=== PATIENT | female | born 1980 | race Caucasian/White ===

== ENCOUNTER 2018-04-02 05:55 | Observation (INO) ==
--- NOTE | 2018-04-02 06:26 | Emergency Department Note ---
Disposition Clinical Impression: Referred by physician Disposition: Admitted As Inpatient General Adult HPI - General Chief complaint: ED Abdominal Pain Stated complaint: appendicitis, staff rm visit Time Seen by Provider: 04/02/18 06:25 Source: patient, EMS Limitations: no limitations - History of Present Illness HPI Narrative: This patient was not seen by the emergency department. This was a staff room visit. Pain Scale: 5 - Related Data Home Medications Medication Instructions Recorded Confirmed Albuterol Sulfate [Albuterol 2 puff IH Q4HR 04/02/18 04/02/18 Inhaler] Amitriptyline [Elavil] 25 mg PO HS 04/02/18 04/02/18 Amlodipine Besylate 10 mg PO DAILY 04/02/18 04/02/18 Aspirin [Lo-Dose Aspirin EC] 81 mg PO DAILY 04/02/18 04/02/18 Cetirizine HCl [Zyrtec] 10 mg PO DAILY 04/02/18 04/02/18 Dicyclomine [Bentyl] 20 mg PO QID 04/02/18 04/02/18 FLUoxetine HCl [Prozac] 60 mg PO DAILY 04/02/18 04/02/18 Famotidine [Heartburn Prevention] 20 mg PO BID 04/02/18 04/02/18 Fenofibrate Nanocrystallized 200 mg PO DAILY 04/02/18 04/02/18 Fluticasone/Vilanterol [Breo 1 puff IH DAILY 04/02/18 04/02/18 Ellipta 100-25 Mcg INH] Gabapentin [Neurontin] 800 mg PO QID 04/02/18 04/02/18 Ibuprofen [Motrin] 600 mg PO TID 04/02/18 04/02/18 Insulin Regular U-500 [HumuLIN R 20 - 30 unit SQ TID 04/02/18 04/02/18 U-500] Losartan Potassium [Cozaar] 100 mg PO DAILY 04/02/18 04/02/18 Omeprazole [PriLOSEC] 40 mg PO DAILY 04/02/18 04/02/18 Oxygen 4 l .ROUTE HS 04/02/18 04/02/18 Potassium Chloride [Klor-Con 10] 10 meq PO BID 04/02/18 04/02/18 Quetiapine Fumarate [Seroquel] 200 mg PO HS 04/02/18 04/02/18 Sildenafil Citrate [Revatio] 30 mg PO DAILY 04/02/18 04/02/18 Simvastatin [Zocor] 40 mg PO HS 04/02/18 04/02/18 Tizanidine HCl 4 mg PO BID 04/02/18 04/02/18 Topiramate [Topamax] 100 mg PO BID 04/02/18 04/02/18 Torsemide [Demadex] 20 mg PO BID 04/02/18 04/02/18 hydroCHLOROthiazide 25 mg PO DAILY 04/02/18 04/02/18 [Hydrochlorothiazide] Previous Rx's Medication Instructions Recorded Acetaminophen [Tylenol] 650 mg PO Q6HR PRN tablet 04/03/18 Amoxicillin/Clavulanate [Augmentin] 1 mg PO TID #30 tablet 04/03/18 OxyCODONE/APAP 5/325 [Percocet 1 each PO Q6HR PRN 4 Days #16 04/03/18 5/325 MG] tablet Allergies Allergy/AdvReac Type Severity Reaction Status Date / Time Sulfa (Sulfonamide Allergy Mild Hives Unverified 07/17/15 09:44 Antibiotics) Erythromycin Base AdvReac Intermediate Vomiting Unverified 07/17/15 09:44 Past Medical History - Past Medical History Medical history: Reports: asthma, COPD, diabetes, GERD, hyperlipidemia, hypertension Surgical history: Reports: breast surgery, , other Psychiatric history: Reports: no psych history - Social History Smoking Status: Never smoker Smokeless Tobacco Status: No Alcohol use: Reports: none Drug use: Reports: none Physical Exam - General Limitations: no limitations General appearance: alert Course Vital Signs Temperature 98.1 F 04/02/18 05:59 Pulse Rate 80 04/02/18 05:59 Respiratory Rate 16 04/02/18 05:59 Blood Pressure 95/61 04/02/18 05:59 O2 Sat by Pulse Oximetry 92 04/02/18 05:59 Temperature 98.2 F 04/03/18 14:27 Pulse Rate 64 04/03/18 14:27 Respiratory Rate 16 04/03/18 14:27 Blood Pressure 110/65 04/03/18 14:27 O2 Sat by Pulse Oximetry 98 04/03/18 14:27 Oxygen Delivery Oxygen Delivery Nasal Cannula Medical Decision Making - Lab Data Result diagrams: 04/03/18 05:06 04/03/18 05:06 Lab Results 04/02/18 Range/Units 07:40 POC Glucose 193 H (70-99) mg/dL
[2018-04-02] MEDS ORDERED: Bupivacaine/EPI 1:200k 0.25%PF 30 ML VIAL ONE (07:17)
[2018-04-02] MEDS ORDERED: *HR* Midazolam HCl 2 MG/2 ML VIAL ONE (07:19)
[2018-04-02] MEDS ORDERED: *HR* Propofol 200 MG/20 ML VIAL IVP ONE (07:19)
[2018-04-02] MEDS ORDERED: *HR* FentaNYL (PF) 100 MCG/2 ML VIAL ONE (07:19)
[2018-04-02] MEDS ORDERED: *HR* Rocuronium Bromide 50 MG/5 ML VIAL ONE (07:23)
[2018-04-02] MEDS ORDERED: Lidocaine -MPF 2% 2 ML VIAL ONE (07:23)
[2018-04-02] MEDS ORDERED: Acetaminophen IV 1,000 MG/100 ML INFUS..BTL ONE (07:30)
--- NOTE | 2018-04-02 07:33 | General Surg History&Physical ---
Date of Encounter: 04/02/18 Time of Encounter: 07:50 History of Present Illness Chief complaint: lower abominal pain, acute appendicitis HPI: Ms. Pemberton is a 37 year old female transferred from [facility] after presenting there with approximately 24-hour history of progressive lower abdominal pain. The patient describes being seen by her PCP one day ago with a diagnosis of a urinary tract infection. The symptoms have progressed prompting the patient to present to [facility] for further evaluation and treatment. CT demonstrated an inflamed distended appendix measuring 1.1 cm with no periappendiceal evidence of abscess or free air. In addition a left adnexal 5 x 3.6 cm fat-containing mass was identified. White was 16,000. The findings were consistent with acute appendicitis. Due to a history of severe pulmonary disease the patient was transferred to [facility] for further care and management. It appears that the patient seated ertapenem prior to transfer. Past medical history: Obesity, diabetes, diabetic peripheral neuropathy hypertension, GERD, chronic obstructive disease, sarcoidosis, depression Surgical history: Tubal ligation, , endometrial ablation Allergies: Erythromycin, sulfa Medications: Albuterol aerosol 1 puff every 6 hours Bentyl 10 mg twice a day Cozaar 25 mg by mouth daily Dulera 100 g/5 g per actuation 2 inhalations twice a day Effexor XR 150 g by mouth daily Flonase 50 g per spray 1 spray nasally daily Humulin R per sliding scale 3 times a day Hydrochlorothiazide 25 mg by mouth daily Neurontin 300 mg by mouth 3 times a day Prilosec 20 mg by mouth daily Topamax 1 by mouth daily (dose not specified) Toujeo 300 units per mL - dose not specified administered subcutaneously daily Social history: Patient is G2, P2; she is a smoker admitting to 2 packs daily for 25 years; she quit smoking in 2014. No acknowledged alcohol or illicit drug use. Physical examination: Obese female who appears to be older than her stated age. Cutaneous tattoos are evident. Skin is otherwise warm without obvious jaundice Lungs: Clear to auscultation with no abdominal pain on deep inspiration Cardiac: Rate was rapid, approximately 100 bpm, but without appreciable murmurs Abdomen: Obese, diffusely tender bilateral lower quadrants no obvious rebound. No detected intra-abdominal masses but exam limited by body habitus. Hypoactive bowel sounds Extremities: Without obvious clubbing, cyanosis, edema. Laboratories: White count 16.6, hemoglobin 13.8, hematocrit 41.6. Neutrophils 12.4% Sodium 140, potassium 3.3, chloride 104, BUN 9, creatinine 0.81. Serum glucose 252. LFTs were within normal limits, lipase [address]: Not available for my review. CT findings were by report only. Impression: 37-year-old female transferred from [facility] for further evaluation and treatment of new onset lower abdominal pain with radiologic evidence of acute appendicitis. Patient has significant pulmonary disease. Her Pulmologist is Dr Reinoso [facility]. The patient was transferred to [facility] for surgical evaluation and, if necessary, and pulmonary evaluation/treatment. I have recommended surgery. The patient is a reasonable candidate for laparoscopic appendectomy but understands open appendectomy may become necessary. Risks of surgery include hemorrhage, infection, injury to adjacent structures, possible removal of a normal appendix. Additional risks include respiratory failure, chronic hypoxia, prolonged intubation/mechanical ventilation. Alternatives to surgery include continued expectant follow-up with IV antibiotics and IV pain control. The risks of such treatment include worsening of acute appendicitis with perforation and subsequent greater risks. The patient has decided to proceed with surgery. Operative consent has been obtained Past Med Surg [facility] HX - Past Medical History Medical history: asthma, COPD, diabetes, GERD, hyperlipidemia, hypertension Psychiatric history: no psych history - Past Surgical History Surgical History: breast surgery, , other - Social History Smoking Status: Never smoker Smokeless Tobacco Status: No Alcohol use: none Drug use: none Medications and Allergies Albuterol Sulfate [Albuterol Inhaler] 2 puff IH Q4HR #1 inhaler 07/17/15 [Rx] Amlodipine [Norvasc] 10 mg PO HS 07/17/15 [History] Aspirin 81 mg PO HS 07/17/15 [History] Budesonide/Formoterol 160/4.5 [Symbicort] 1 puff IH BID 07/17/15 [History] Cetirizine HCl [Zyrtec] 10 mg PO HS 07/17/15 [History] Gabapentin [Neurontin] 800 mg PO QID 07/17/15 [History] Hydrochlorothiazide 25 mg PO DAILY 07/17/15 [History] Insulin Glargine,Hum.rec.anlog [Lantus Solostar] 50 unit SQ HS 07/17/15 [History ] Losartan [Cozaar] 50 mg PO HS 07/17/15 [History] Metformin [Glucophage] 500 mg PO BID 07/17/15 [History] Omeprazole [PriLOSEC] 40 mg PO HS 07/17/15 [History] Oxygen 4 l NS AD 07/17/15 [History] Simvastatin [Zocor] 20 mg PO HS 07/17/15 [History] Venlafaxine XR (24 HR) [Effexor XR] 150 mg PO HS 07/17/15 [History] Amitriptyline [Elavil] 25 mg PO HS 10/24/15 [History] Dicyclomine [Bentyl] 20 mg PO QID 10/24/15 [History] Famotidine [Pepcid] 20 mg PO BID 10/24/15 [History] Insulin Regular U-500 [HumuLIN R U-500] 20 unit SQ QID 10/24/15 [History] Tizanidine [Zanaflex] 2 mg PO BID 10/24/15 [History] Triamcinolone Acetonide [Nasacort] 1 spr NS BID 10/24/15 [History] 3 Allergy/AdvReac Type Severity Reaction Status Date / Time Sulfa (Sulfonamide Allergy Mild Hives Unverified 07/17/15 09:44 Antibiotics) Erythromycin Base AdvReac Intermediate Vomiting Unverified 07/17/15 09:44 Review of Systems All systems PM: The remainder of the systems were reviewed and are negative General Surgery Exam Initial Vital Signs Temp Pulse Resp BP Pulse Ox 98.1 F 80 16 95/61 92 04/02/18 05:59 04/02/18 05:59 04/02/18 05:59 04/02/18 05:59 04/02/18 05:59 Results - Labs All other labs normal.
--- NOTE | 2018-04-02 07:39 | Anesthesia Evaluation PreOp ---
Date of Encounter: 04/02/18 Time of Encounter: 07:00 - Past History Planned Operation: Lap Appendectomy Cardiac History: HTN, Hyperlipidemia Pulmonary History: COPD (on oxygen), OMID Dx, Other (POVD) DIRECTOR OF CATEGORY MANAGEMENT History: Denies Any Significant HX Other Medical History: Diabetes Type II (Accu check 193), Other (MO) Anesthesia History: No Prior Anesthetic Complications Alcohol Use: none Drug use: none Medications and Allergies Albuterol Sulfate [Albuterol Inhaler] 2 puff IH Q4HR #1 inhaler 07/17/15 [Rx] Amlodipine [Norvasc] 10 mg PO HS 07/17/15 [History] Aspirin 81 mg PO HS 07/17/15 [History] Budesonide/Formoterol 160/4.5 [Symbicort] 1 puff IH BID 07/17/15 [History] Cetirizine HCl [Zyrtec] 10 mg PO HS 07/17/15 [History] Gabapentin [Neurontin] 800 mg PO QID 07/17/15 [History] Hydrochlorothiazide 25 mg PO DAILY 07/17/15 [History] Insulin Glargine,Hum.rec.anlog [Lantus Solostar] 50 unit SQ HS 07/17/15 [History ] Losartan [Cozaar] 50 mg PO HS 07/17/15 [History] Metformin [Glucophage] 500 mg PO BID 07/17/15 [History] Omeprazole [PriLOSEC] 40 mg PO HS 07/17/15 [History] Oxygen 4 l NS AD 07/17/15 [History] Simvastatin [Zocor] 20 mg PO HS 07/17/15 [History] Venlafaxine XR (24 HR) [Effexor XR] 150 mg PO HS 07/17/15 [History] Amitriptyline [Elavil] 25 mg PO HS 10/24/15 [History] Dicyclomine [Bentyl] 20 mg PO QID 10/24/15 [History] Famotidine [Pepcid] 20 mg PO BID 10/24/15 [History] Insulin Regular U-500 [HumuLIN R U-500] 20 unit SQ QID 10/24/15 [History] Tizanidine [Zanaflex] 2 mg PO BID 10/24/15 [History] Triamcinolone Acetonide [Nasacort] 1 spr NS BID 10/24/15 [History] 3 Allergy/AdvReac Type Severity Reaction Status Date / Time Sulfa (Sulfonamide Allergy Mild Hives Unverified 07/17/15 09:44 Antibiotics) Erythromycin Base AdvReac Intermediate Vomiting Unverified 07/17/15 09:44 - Meds/Allergy Pre-op Review Medications Reviewed: Yes Allergies Reviewed: Yes Beta Blockers on Current Med List: No Anesthesia Results - Labs Laboratory Tests 05/19/15 10/24/15 08/09/16 Unknown 06:44 11:29 Hgb POC Hgb 15.8 H Plt Count Sodium Potassium BUN 6 L POC Creatinine 0.50 L 08/09/16 02/10/18 11:29 11:43 Hgb 15.7 H POC Hgb Plt Count 339 Sodium 135 L Potassium 3.3 L BUN POC Creatinine - Imaging EKG: report reviewed (SR moderate intraventricular delay) Anesthesia Exam O2 Sat Height 1.6 m Weight 104.326 kg O2 Sat by Pulse Oximetry 94 O2 Sat by Pulse Oximetry 95 O2 Sat by Pulse Oximetry 92 Vital Signs Temp Pulse Resp BP Pulse Ox 98.1 F 80 16 95/61 92 04/02/18 05:59 04/02/18 05:59 04/02/18 05:59 04/02/18 05:59 04/02/18 05:59 Height: 5'3 Weight: 230 lbs NPO (# of Hours): MN Pain Scale: 2 - HEENT Pupil (Motor): Pupils equal, EOMI Mallampati: III Teeth: Normal Oral Opening: Less than or equal to 3 - DIRECTOR OF CATEGORY MANAGEMENT LOC: Oriented DIRECTOR OF CATEGORY MANAGEMENT Motor: Normal RUE, Normal LUE, Normal RLE, Normal LLE, Normal Face DIRECTOR OF CATEGORY MANAGEMENT Sensory: Normal: RUE, LUE, RLE, LLE, Face - Cardiac Rhythm: Regular Murmur: None JVD: No Carotid Bruit: No - Pulmonary Breath Sounds: bilateral Clear Respiratory Effort: Symmetrical Anesthesia Assess/Plan ASA Score: 3 Modified [place] Scale for Level of Consciousness: Cooperative, oriented, and tranquil Anesthetic Plan: General Monitoring Plan: Standard Monitors Recovery Plan: PACU (Discussed GA, risk of anesthesia, agrees to proceed)
[2018-04-02] MEDS ORDERED: Lidocaine -MPF 4% 5 ML AMPUL ONE (07:40)
[2018-04-02] MEDS ORDERED: CefOXitin 2,000 MG VIAL ONE (07:55)
[2018-04-02] MEDS ORDERED: *HR* Succinylcholine 200 MG/10 ML VIAL IVP ONE (07:59)
[2018-04-02] MEDS ORDERED: Ondansetron 4 MG/2 ML VIAL ONE (08:09)
[2018-04-02] MEDS ORDERED: Dexamethasone 4 MG/ML VIAL ONE (08:09)
[2018-04-02] MEDS ORDERED: *HR* PHENYLEPHRINE 1,000 MCG/10 ML SYRINGE IVP ONE (08:12)
[2018-04-02] MEDS ORDERED: Ketorolac 30 MG/ML VIAL ONE (08:14)
[2018-04-02] MEDS ORDERED: Neostigmine Methylsulfate 3 MG/3 ML SYRINGE ONE (08:14)
[2018-04-02] MEDS ORDERED: *HR* OxyCODONE Immed Rel 5 MG TABLET PO PRN ×2 (08:38→10:17)
[2018-04-02] MEDS ORDERED: *HR* HYDROmorphone (PF) 1 MG/ML SYRINGE IVP PRN (08:38)
[2018-04-02] MEDS ORDERED: Ondansetron 4 MG/2 ML VIAL IVP PRN (08:38)
[2018-04-02] MEDS ORDERED: Ringers Solution, Lactated 500 ML IVC ONE (09:15)
--- NOTE | 2018-04-02 09:33 | Operative Note ---
Date of procedure: 04/02/18 Pre-op diagnosis: acute appendicitis Post-op diagnosis: other (Acute perforated appendicitis with peritonitis) Procedure: Laparoscopic appendectomy Complications: None apparent; acute perforated appendicitis encountered at the time of surgery (pre-existing) Anesthesia: GETA Local Anesthetics: 0.25% Sensorcaine HCL with Epinephrine 1:200,000 SubQ (cc) ( 30 mL) Surgeon: Blake Rascon Was there an assistant site manager present: No Estimated blood loss (cc): 10 IV fluids (cc): 1,000 Specimen: appendix Condition: stable Disposition: PACU Procedure in Detail: Brief history 37-year-old female transferred from [facility] for further evaluation and treatment of acute onset lower abdominal pain with radiologic evidence of acute appendicitis. The patient has a significant history of chronic respiratory disease/hypoxia prompting the referral. On arrival at [facility] emergency room Department, the patient was evaluated. She was found to have bilateral lower abdominal pain without obvious peritoneal signs. Urgent surgery was arranged. Complete historical details and physical findings are available in the dictated H&P Technique: Patient was brought to the operating room where she was placed supine on the procedure table. The patient was appropriately identified as to person and procedure. The accuracy of this information was confirmed by the patient and procedure team. Patient had significant discomfort/abdominal pain when placed supine. The patient was intubated and anesthetized under the supervision of Dr. Sarthak Aquino. A Castanon catheter was inserted. The abdomen was prepped and draped in usual sterile fashion. Several milliliters of 0.25% bupivacaine with 1-200,000 units epinephrine was infiltrated into the infraumbilical skin and subcutaneous tissue. A small transverse incision was made. Dissection was carried to the fascia. The fascia was grasped, elevated, and infiltrated with additional bupivacaine with epinephrine. The fascia was then incised and an 11 mm XCel port established. The rigid laparoscope was placed within the obturator to visualize passage through the layers of the anterior abdominal wall. When the abdominal cavity was accessed, the obturator was replaced by the rigid laparoscope, the abdomen was insufflated with gaseous carbon dioxide. There was no obvious visible injury from establishing the port. There were adhesions in the low midline abdomen making it necessary to place the 5 mm suprapubic port to the right of midline. A 12 mm port was placed in the left lower quadrant midclavicular line. Each site was infiltrated with these bupivacaine with epinephrine solution. On examining the right lower quadrant, pus was evident in the right paracolic gutter. Approximately 80 mL was evacuated with the laparoscopic suction device. The cecum was elevated and an inflamed, acutely perforated appendicitis was encountered. The mesoappendix was divided with the [place] dissectors. The appendix was transected at its junction with the cecum using an Ethicon ATS 45 mm stapler and a blue cartridge. The acutely inflamed appendix was elevated, adherent loops of small bowel were bluntly mobilized and the mesoappendix isolated. The mesoappendix was transected with the aid of the Ethicon ATS 45 mm stapler, using a vascular cartridge. When the appendix was from the surrounding structures, it was placed in an endoscopic pouch and extracted through the infraumbilical opening. The appendix was retrieved and sent to pathology. The staple lines were inspected and found to be intact. The pericolic gutter was again aspirated for any accumulated fluid/pus/blood. Hemostasis was deemed adequate. The pneumoperitoneum was evacuated and the instrumentation removed. The fascia of the infraumbilical opening was closed with interrupted [id number] 2-0 Vicryl using S retractors. The skin edges of the port sites were approximated with subcuticular 4-0 Vicryl. The incisions were sealed with Dermabond dermal adhesive. The patient was taken to PACU in stable condition. Needle, sponge, and instrument counts were correct at the close of the case.
--- NOTE | 2018-04-02 09:45 | Anesthesia Evaluation Post Op ---
Date of Encounter: 04/02/18 Time of Encounter: 09:44 - Vital Signs Vital Signs: Vital Signs/O2 Sat, Most Current Temp Pulse Resp BP Pulse Ox 98.6 F 80 16 103/56 93 04/02/18 09:19 04/02/18 09:39 04/02/18 09:39 04/02/18 09:39 04/02/18 09:39 - Lungs Lungs: Clear Ascult./Percussion - Airway Airway: Non-obstructed - Cardiovascular Regular Rate - Mental Status Mental Status: Alert & Oriented, Answers Appropriately - Pain Pain Scale: 0 Pain Scale used: Numeric (1 - 10) - Nausea Vomiting Nausea Vomiting: Not Present - Hydration Hydration: NPO - Discharge PostOp Status: Transfer Patient to floor Attestation: I have assessed this patient and find they meet discharge criteria.
[2018-04-02] MEDS ORDERED: D5% in Water 1,000 ML IVC PRN (10:17)
[2018-04-02] MEDS ORDERED: *HR* Dextrose 50 % in Water (Syg) 50 ML SYRINGE IVP PRN (10:17)
[2018-04-02] MEDS ORDERED: Dextrose Gel 15 GM/37.5 ML TUBE PO PRN (10:17)
[2018-04-02] MEDS: Ringers Solution, Lactated 1,000 ML IVC SCH (11:19)
[2018-04-02] MEDS: Insulin LISPRO 300 UNITS/3 ML VIAL SQ SCH ×4 (11:50→23:32)
[2018-04-02] MEDS: Acetaminophen 325 MG TABLET PO PRN ×2 (13:34→23:32)
[2018-04-02] MEDS: *HR* OxyCODONE/APAP 5/325 TABLET PO PRN (16:27)
[2018-04-02] MEDS: Famotidine 20 MG TABLET PO SCH (16:27)
[2018-04-02] MEDS ORDERED: Piperacillin/Tazobactam 3.375 GM in 0.9 % Sodium Chloride Mini Bag 100 ML IVPB SCH (18:00)
[2018-04-02] MEDS ORDERED: Aspirin 81 MG TAB.CHEW PO SCH (21:00)
[2018-04-03] MEDS: Piperacillin/Tazobactam 3.375 GM in 0.9 % Sodium Chloride Mini Bag 100 ML IVPB SCH ×3 (01:01→17:30)
[2018-04-03] MEDS: Ringers Solution, Lactated 1,000 ML IVC SCH ×2 (01:15→18:40)
[2018-04-03] MEDS: Insulin LISPRO 300 UNITS/3 ML VIAL SQ SCH ×4 (02:00→15:22)
[2018-04-03 05:43] LABS: Basophils # 0.1 K/mcL (0.0-0.2); Basophils % 0.4 %; Eosinophils # 0.3 K/mcL (0.0-0.6); Hematocrit 33.3 % (35.3-44.9); Hemoglobin 11.4 g/dL (11.5-15.4); Immature Granulocytes % 0.4 % (0-4); Lymphocytes # 4.7 K/mcL (0.6-4.6); Lymphocytes % 36.3 %; Mean Corpuscular HGB Conc 34.2 g/dL (31.6-35.5); Mean Corpuscular Hemoglobin 31.3 pg (28.0-33.3); Mean Corpuscular Volume 91.5 fL (83.0-100.0); Monocytes # 0.6 K/mcL (0.0-1.3); Monocytes % 4.5 %; Neutrophils # 7.2 K/mcL (1.6-8.9); Platelet Count 324 K/mcL (140-400); Red Blood Count 3.64 M/mcL (3.82-4.97); Red Cell Distribution Width 13.5 % (11.5-14.5); Segmented Neutrophils % 56.4 %
[2018-04-03 05:55] LABS: BUN/Creatinine Ratio 13 (6-26); Blood Urea Nitrogen 7 mg/dL (6-20); Calcium 8.7 mg/dL (8.6-10.3); Carbon Dioxide 21 mEq/L (23-29); Chloride 112 mEq/L (98-107); Glucose 225 mg/dL (70-105); Osmolality,Calculated 297 (280-300); Potassium 3.6 mEq/L (3.5-5.1); Sodium 141 mEq/L (136-145); eGFR For African Americans > 60 (> 60); eGFR For Non-African Americans > 60 (> 60)
[2018-04-03] MEDS: Famotidine 20 MG TABLET PO SCH (08:50)
[2018-04-03] MEDS: *HR* OxyCODONE/APAP 5/325 TABLET PO PRN (10:33)
[2018-04-03 14:35] VITALS: BP 110/65
--- NOTE | 2018-04-03 16:27 | General Surgery Progress Note ---
Date of Encounter: 04/03/18 Time of Encounter: 15:55 Subjective Narrative: General Surgery - POD #1 Progress Note Discharge Summary Patient feeling much improved; lower abdominal pain with which the patient resented to [facility] is markedly diminished. The patient admits to "being sore". The patient has remained afebrile, most recently 98.2; pulse 64, respirations 16, blood pressure 94/61 to 110/65 SPO2 on 4 L/m nasal cannula 98% - the patient is routinely on 4 L/m nasal cannula at home Lungs are clear, no obvious abdominal pain on deep inspiration Cardiac: Regular rate Abdomen: Obese, with tenderness in the right lower quadrant but markedly diminished from admission. No detected left lower quadrant tenderness. Active bowel sounds. The patient is tolerating a regular diet. No nausea or vomiting. Postoperative CBC shows improvement. Leukocytosis is diminished to 12.8 (on presentation 16.6) H&H 11.4 and 33.3. Differential shows resolution of the neutrophilia lymphocytes are diminished at 4.7%. Electrolytes - hypokalemia corrected, 3.6. Sodium 141, chloride 112, BUN 7, creatinine 0.55. Accu-Cheks remain elevated ranging 193-279 Impression: Postoperative day 1 - status post laparoscopic appendectomy after transferring from [facility] to [facility] with approximately a 24-hour history of progressive lower abdominal pain nausea and vomiting. Examination and CT demonstrated findings consistent with acute appendicitis. Patient has significant pulmonary disease prompting her referral to [facility]. The patient arrived early yesterday morning, was evaluated, and was taken to surgery. Laparoscopic appendectomy was completed. At the time of surgery, an acutely perforated appendicitis with pus in the pericolic gutter was found. These findings were discussed with the patient along with the need for postoperative IV antibiotics. Today the patient is insistent on being discharged home. The risks of this discharge were discussed in detail. The patient did not want to remain in the hospital for IV antibiotic therapy as recommended. The patient expressed understanding as to the risks. Plan: Discharge home Continue antibiotic therapy with oral meds. Augmentin 500 mg by mouth 3 times a day will be prescribed The patient may consume a regular diet The patient is to resume her routine home meds, including home oxygen Activity as tolerated the lifting is limited to less than 20 pounds Tylenol, ibuprofen, Motrin, Advil, Aleve, is recommended for pain Prescription for Percocet 5/325, #16, one every 6 hours as needed for pain not relieved by [id number] medications Follow-up in my office, , 04/09/18. The patient will call my office on Friday morning to make this appointment The patient has been instructed to contact me for increasing abdominal pain, fever, chills, nausea or vomiting. Discharge diagnoses: Acute perforated appendicitis Chronic hypoxia / COPD / emphysema Poorly controlled diabetes with diabetic peripheral neuropathy Sarcoidosis Obesity Left adnexal 5 x 3.6 cm fat-containing mass - likely a dermoid Status at the time of discharge: Fair Objective Vital Signs - Last 8 Hours Temp Pulse Resp BP Pulse Ox 04/03/18 14:27 98.2 F 64 16 110/65 98 04/03/18 09:58 97.9 F 67 15 94/61 93 Intake and Output 04/03/18 04/03/18 04/03/18 07:59 15:59 23:59 Intake Total 1100 / 1100 1680 / 1680 Output Total 0 / 0 100 / 100 Balance 1100 / 1100 1580 / 1580 Intake: IV Fluids 1100 / 1100 Lactated Ringers 1,000 ML @ 75 1000 / 1000 mls/hr IVC .[id number] [facility]ZAD Rx#: [id number] Zosyn 3.375 GM In 0.9 % Sodium 100 / 100 Chloride (Mini-Bag +) 100 ML @ 25 mls/hr IVPB Q8H [facility] Rx#: [id number] Oral 0 / 0 1680 / 1680 Output: Urine 0 / 0 100 / 100 Other: Meal Lunch Percent of Meal Consumed 75% Blood Glucose* 177 237 - Labs 04/03/18 05:06 04/03/18 05:06 Diabetes panel 04/03/18 Range/Units 05:06 Sodium 141 (136-145) mEq/L Potassium 3.6 (3.5-5.1) mEq/L Chloride 112 H (98-107) mEq/L Carbon Dioxide 21 L (23-29) mEq/L BUN 7 (6-20) mg/dL Creatinine 0.55 L (0.60-1.20) mg/dL Glucose 225 H (70-105) mg/dL Calcium 8.7 (8.6-10.3) mg/dL Calcium panel 04/03/18 Range/Units 05:06 Calcium 8.7 (8.6-10.3) mg/dL Pituitary panel 04/03/18 Range/Units 05:06 Sodium 141 (136-145) mEq/L Potassium 3.6 (3.5-5.1) mEq/L Chloride 112 H (98-107) mEq/L Carbon Dioxide 21 L (23-29) mEq/L BUN 7 (6-20) mg/dL Creatinine 0.55 L (0.60-1.20) mg/dL Glucose 225 H (70-105) mg/dL Calcium 8.7 (8.6-10.3) mg/dL Adrenal panel 04/03/18 Range/Units 05:06 Sodium 141 (136-145) mEq/L Potassium 3.6 (3.5-5.1) mEq/L Chloride 112 H (98-107) mEq/L Carbon Dioxide 21 L (23-29) mEq/L BUN 7 (6-20) mg/dL Creatinine 0.55 L (0.60-1.20) mg/dL Glucose 225 H (70-105) mg/dL Calcium 8.7 (8.6-10.3) mg/dL - VTE Documentation of Mechanical Device: Graduated compression elastic hosiery Consult Discharge Plan - Plan Referrals: Blake Rascon MD [Non-Partnered Physician] -
--- NOTE | 2018-04-03 16:31 | Discharge Summary ---
Outpatient Proc Discharge Plan - Plan Additional Instructions: Diabetic diet Activity as tolerated; lifting limited to less than 20 pounds Patient may shower, wash incisions with soap and water Patient may resume home meds including home oxygen therapy Tylenol, ibuprofen, Motrin, Advil, etc. as needed for pain Prescription for Percocet 5/325, #16, one every 6 hours as needed for pain not relieved by [id number] medication Follow-up in the office, , 04/09/18. Patient to call office Friday to make this appointment. Contact me or return to the emergency department for increasing abdominal pain, fever, chills, nausea, or vomiting. Prescriptions: OxyCODONE/APAP 5/325 [Percocet 5/325 MG] 1 each PO Q6HR PRN 4 Days #16 tablet PRN Reason: pain not relieved by Tylenol Amoxicillin/Clavulanate [Augmentin] 1 mg PO TID #30 tablet Home Medications: Albuterol Sulfate [Albuterol Inhaler] 2 puff IH Q4HR 04/02/18 [History] Amitriptyline [Elavil] 25 mg PO HS 04/02/18 [History] Amlodipine Besylate 10 mg PO DAILY 04/02/18 [History] Aspirin [Lo-Dose Aspirin EC] 81 mg PO DAILY 04/02/18 [History] Cetirizine HCl [Zyrtec] 10 mg PO DAILY 04/02/18 [History] Dicyclomine [Bentyl] 20 mg PO QID 04/02/18 [History] FLUoxetine HCl [Prozac] 60 mg PO DAILY 04/02/18 [History] Famotidine [Heartburn Prevention] 20 mg PO BID 04/02/18 [History] Fenofibrate Nanocrystallized 200 mg PO DAILY 04/02/18 [History] Fluticasone/Vilanterol [Breo Ellipta 100-25 Mcg INH] 1 puff IH DAILY 04/02/18 [ History] Gabapentin [Neurontin] 800 mg PO QID 04/02/18 [History] Ibuprofen [Motrin] 600 mg PO TID 04/02/18 [History] Insulin Regular U-500 [HumuLIN R U-500] 20 - 30 unit SQ TID 04/02/18 [History] Losartan Potassium [Cozaar] 100 mg PO DAILY 04/02/18 [History] Omeprazole [PriLOSEC] 40 mg PO DAILY 04/02/18 [History] Oxygen 4 l .ROUTE HS 04/02/18 [History] Potassium Chloride [Klor-Con 10] 10 meq PO BID 04/02/18 [History] Quetiapine Fumarate [Seroquel] 200 mg PO HS 04/02/18 [History] Sildenafil Citrate [Revatio] 30 mg PO DAILY 04/02/18 [History] Simvastatin [Zocor] 40 mg PO HS 04/02/18 [History] Tizanidine HCl 4 mg PO BID 04/02/18 [History] Topiramate [Topamax] 100 mg PO BID 04/02/18 [History] Torsemide [Demadex] 20 mg PO BID 04/02/18 [History] hydroCHLOROthiazide [Hydrochlorothiazide] 25 mg PO DAILY 04/02/18 [History] Acetaminophen [Tylenol] 650 mg PO Q6HR PRN tablet 04/03/18 [Rx] Amoxicillin/Clavulanate [Augmentin] 1 mg PO TID #30 tablet 04/03/18 [Rx] OxyCODONE/APAP 5/325 [Percocet 5/325 MG] 1 each PO Q6HR PRN 4 Days #16 tablet [Rx]
== END 2018-04-03 18:41 | disposition home or self-care (01) ==
LOC: EMEROO 05:55 → 3ANU 07:49 → INTOOBSV 07:49 → 3ANU 07:57
PROVIDERS: ADMIT Surgery; ATTEND Surgery

== ENCOUNTER 2019-06-20 20:14 | Inpatient (IN) ==
[2019-06-20] MEDS ORDERED: Ondansetron 4 MG/2 ML VIAL IVP PRN (22:25)
[2019-06-20] MEDS ORDERED: Naloxone 0.4 MG/ML INJ IVP PRN (22:25)
[2019-06-20] MEDS ORDERED: 0.9 % Sodium Chloride 1,000 ML IVC SCH (22:30)
--- NOTE | 2019-06-20 23:00 | Internal Med History&Physical ---
Date of Encounter: 06/20/19 Time of Encounter: 22:27 Internal Medicine - H&P: HPI History of present illness: Ms. Pemberton is a 38 year old female with a past medical history of COPD, diabetes, peripheral neuropathy, pulmonary vascular occlusive disease, pulmonary hypertension and sarcoidosis on 4 L nasal cannula at home and currently on a transplant list up at [facility] who initially presented to [facility] with complaints of dysuria, nausea and vomiting. Patient also reporting low back pain. She was found to be septic with a fever of 104 and tachycardic suspicious for pyelonephritis with positive UA. Lactic acid of 3. Patient started on Zosyn and vancomycin. White count was normal otherwise. Patient was also found to be hyperglycemic with a blood glucose of 435 and anion gap 27. No evidence of acidosis on ABG. Patient was started on insulin drip. Initial blood pressure was 140/57 patient received an additional 500 mL bolus of fluid for a total of 2500 mL. On arrival patient was alert oriented 3, did not appear septic. Initial vitals concerning for blood pressure of 85/63. Repeat blood pressure now 100/65. Patient states her blood pressure normally ru ns in the 120s. Patient is otherwise not having other complaints at this time. We will admit for sepsis of urological origin. Past Med Surg Social Fam HX - Past Medical History Medical history: asthma, COPD, diabetes, GERD, hyperlipidemia, hypertension Additional medical history: PVOD, pulmonary HTN, SBO Psychiatric history: anxiety, depression - Past Surgical History Surgical History: appendectomy, breast surgery, , SOHAN/BSO, other Additional surgical history: Left ovary removal, uterine ablation, transvaginal sling - Social History Smoking Status: Former smoker Packs per day: 2 Smokeless Tobacco Status: No Alcohol use: none Drug use: none - Family History Mother Name: Diamond Family Member Ethnicity: Non- Living Status: Age at : 53 Cause of : lung cancer Hx Family Cardiac Disorders: Yes Hx Family Respiratory Disorders: Yes Hx Family Cancer: Yes Hx Family GI Disorders: No Hx Family Genitourinary Disorders: No Hx Family Endocrine Disorder: Yes Hx Family Musculoskeletal Disorders: No Hx Family Neuromuscular Disorders: No Hx Family Neurologic Disorders: No Hx Family HEENT Disorders: No Hx Family Autoimmune Disorders: No Hx Family Reproductive Disorders: No Hx Family Psychosocial Disorders: No Hx Family Medical Disorders: No Internal Medicine - H&P: Meds Albuterol Sulfate [Proventil Inhaler] 2 puff IH Q4HR PRN 04/02/18 [History] Aspirin [Lo-Dose Aspirin EC] 81 mg PO DAILY 04/02/18 [History] Cetirizine HCl [Zyrtec] 10 mg PO DAILY 04/02/18 [History] Dicyclomine [Bentyl] 20 mg PO BID 04/02/18 [History] FLUoxetine HCl [Prozac] 60 mg PO DAILY 04/02/18 [History] Famotidine [Heartburn Prevention] 20 mg PO HS PRN 04/02/18 [History] Fenofibrate,Micronized [Fenofibrate] 200 mg PO DAILY #0 04/02/18 [History] Gabapentin [Neurontin] 800 mg PO QID 04/02/18 [History] Insulin Regular U-500 [HumuLIN R U-500] 32 unit SQ TID 04/02/18 [History] Sildenafil Citrate [Revatio] 10 mg PO TID 04/02/18 [History] Simvastatin [Zocor] 40 mg PO HS 04/02/18 [History] Tizanidine HCl 4 mg PO BID PRN 04/02/18 [History] Topiramate [Topamax] 150 mg PO BID 04/02/18 [History] Omeprazole [PriLOSEC] 20 mg PO DAILY 10/27/18 [History] hydrOXYzine HCl [Hydroxyzine HCl] 50 mg PO QPM 10/27/18 [History] Acetaminophen [Tylenol] 650 mg PO Q6H PRN tablet 10/30/18 [Rx] Buspirone HCl [Buspar] 15 mg PO BID 06/21/19 [History] Fluticasone/Salmeterol [Airduo Respiclick 113-14 Mcg] 1 puff IH BID 06/21/19 [History] Losartan Potassium [Cozaar] 50 mg PO DAILY 06/21/19 [History] Potassium Chloride [Klor-Con 10] 20 meq PO DAILY 06/21/19 [History] Quetiapine Fumarate [Seroquel] 300 mg PO HS 06/21/19 [History] lamoTRIgine [Lamictal] 100 mg PO DAILY 06/21/19 [History] Allergy/AdvReac Type Severity Reaction Status Date / Time Erythromycin Base Allergy Intermediate HIVES,VOMIT Verified 06/21/19 11:04 ING Sulfa (Sulfonamide Allergy Mild HIVES,VOMIT Verified 06/21/19 11:04 Antibiotics) ING All Systems PM: A 10-system review of systems was performed and is negative for pertinent findings except as documented above in the HPI. - Constitutional Constitutional: no chills, no fever(s), no night sweats - EENT Eyes: no change in vision, no discharge, no pain, no photophobia Ears: no ear discharge, no ear pain, no tinnitus Nose, mouth and throat: no dysphagia, no nasal discharge, no neck pain, no sore throat - Cardiovascular Cardiovascular ROS IM: no chest pain, no diaphoresis, no dyspnea, no lightheadedness, no palpitations, no syncope - Respiratory Respiratory: no cough, no dyspnea, no wheezing, no excessive phlegm production - Gastrointestinal Gastrointestinal: no abdominal pain, no diarrhea, no hematemesis, no hematochezia, no melena, no nausea, no vomiting - Genitourinary Genitourinary: no change in urinary stream, no dysuria, no flank pain, no hematuria - Musculoskeletal Musculoskeletal ROS IM: no numbness, no tingling - Integumentary Integumentary IM: no rash, no unusual bruising - Neurological Neurological ROS: no confusion, no convulsions, no focal weakness, no numbness, no tingling, no tremor(s) - Hematologic/Lymphatic Hematologic/Lymphatic: no easy bruising - Constitutional Vitals: Temp Pulse Resp BP Pulse Ox 99.1 F 95 20 91/55 99 06/20/19 22:01 06/20/19 22:01 06/20/19 22:01 06/20/19 22:01 06/20/19 22:01 Exam: General: Alert and oriented 3 Skin:Normal color, no rash, no lesions. HEENT:EOM, pupils equal, round and reactive. Cardiovascular:Normal S1 & S2, no rubs, murmurs or gallops. No JVD. Pulse regular. Lungs:Normal breath sounds, no wheezes or crackles. Abdomen:Soft, non-tender, no rigidity. Mild right-sided CVA tenderness noted Extremities:No deformity, no edema or tenderness, no joint swelling or clubbing. Neurological:Normal cognition and motor skills. Pulses:Carotid and radial pulses normal +2. Rest of the physical exam is non contributory Internal Med - H&P Results - Labs CBC & Chem 7: 06/21/19 06:17 06/21/19 06:17 - Assessment and Plan (1) Pyelonephritis Current Visit: Yes Status: Acute Assessment and plan: Patient presenting with right-sided flank pain radiating to who her right growing with several day history of dysuria. UA showing positive nitrites and leukocyte esterase concerning for possible pyelonephritis. Patient denies any previous history of nephrolithiasis. Patient received vancomycin and Zosyn prior to transfer. -Continue patient on maintenance fluids -Pain control as needed -We will continue patient on Zosyn -We will send for a CT scan of the abdomen and pelvis for further assessment of flank pain. (2) Sepsis Current Visit: Yes Status: Acute Assessment and plan: Patient presenting with fever 104 and tachycardia secondary to urinary tract infection. Found to have a lactic acid of 3. Blood pressure initially stable on arrival however began to drop into the low 90s. Patient received a total of 2500 mL of fluid bolus. Blood pressure currently stable; no further evidence of tachycardia. -Continue maintenance fluids -We will repeat lactic acid -Continue antibiotics -Follow-up blood and urine cultures Qualifiers: Sepsis type: sepsis due to unspecified organism Sepsis acute organ dysf unction status: without acute organ dysfunction Qualified Code(s): A41.9 - Sepsis, unspecified organism (3) PVOD (pulmonary veno-occlusive disease) Current Visit: No Status: Acute (4) COPD (chronic obstructive pulmonary disease) Current Visit: No Status: Chronic Assessment and plan: History of COPD currently on 4 L of oxygen at home. No evidence of any acute exacerbation at this time. -Continue O2 support -Resume any home inhalers. Qualifiers: COPD type: unspecified COPD Qualified Code(s): J44.9 - Chronic obstructive pulmonary disease, unspecified (5) Diabetes Current Visit: No Status: Chronic Assessment and plan: Resume diabetic diet, sliding scale insulin plus basal dose once blood glucose stable.. Qualifiers: Diabetes mellitus type: type 2 Diabetes mellitus terminal supervisor insulin use: with mcc use Diabetes mellitus complication status: with hyperglycemia Qualified Code(s): E11.65 - Type 2 diabetes mellitus with hyperglycemia; Z79.4 - care home (current) use of insulin (6) Hyperglycemia Current Visit: Yes Status: Acute Assessment and plan: Patient found to have a blood glucose of over 400 prior to transfer. Repeat blood glucose here 209. -We will start patient on blood glucose checks every hour with sliding scale coverage. (7) Hypokalemia Current Visit: Yes Status: Acute Assessment and plan: Hypokalemia of 2.8. -Replete as needed. (8) DVT prophylaxis Current Visit: Yes Status: Acute - Time Spent With Patient Total time spent is greater than 50% in coordination of care (as documented) at patient's floor/unit and/or counseling patient:
[2019-06-20] MEDS ORDERED: Dextrose Gel 15 GM/37.5 ML TUBE PO PRN ×2 (23:05)
[2019-06-20] MEDS ORDERED: D5% in Water 1,000 ML IVC PRN (23:05)
[2019-06-20] MEDS ORDERED: *HR* Dextrose 50 % in Water (Syg) 50 ML SYRINGE IVP PRN (23:05)
[2019-06-21] MEDS: Insulin DETEMIR 100 UNIT/ML X5UNITS SQ SCH ×2 (01:27→21:35)
[2019-06-21 01:41] LABS: Basophils # 0.1 K/mcL (0.0-0.2); Basophils % 0.3 %; Hematocrit 34.2 % (35.3-44.9); Hemoglobin 11.4 g/dL (11.5-15.4); Immature Granulocytes % 0.9 % (0-4); Lymphocytes # 2.2 K/mcL (0.6-4.6); Lymphocytes % 11.2 %; Mean Corpuscular HGB Conc 33.3 g/dL (31.6-35.5); Mean Corpuscular Hemoglobin 29.7 pg (28.0-33.3); Mean Corpuscular Volume 89.1 fL (83.0-100.0); Mean Platelet Volume 12.2 fL (9.4-12.4); Monocytes % 5.2 %; Platelet Count 211 K/mcL (140-400); Red Blood Count 3.84 M/mcL (3.82-4.97); Red Cell Distribution Width 13.2 % (11.5-14.5); Segmented Neutrophils % 82.4 %; White Blood Count 19.5 K/mcL (4.3-11.1)
[2019-06-21 01:49] LABS: INR 1.3; Prothrombin Time 14.8 Seconds (9.4-12.1)
[2019-06-21 02:02] LABS: Alanine Aminotransferase 10 Units/L (7-52); Albumin 3.3 g/dL (3.5-5.7); Albumin/Globulin Ratio 1.5 (1.1-2.2); Alkaline Phosphatase 62 Units/L (34-104); Aspartate Amino Transferase 12 Units/L (13-39); BUN/Creatinine Ratio 13 (6-26); Bilirubin,Total 0.3 mg/dL (0.3-1.0); Blood Urea Nitrogen 10 mg/dL (6-20); Calcium 8.1 mg/dL (8.6-10.3); Carbon Dioxide 19 mEq/L (23-29); Chloride 104 mEq/L (98-107); Globulin 2.2 g/dL (2.4-3.5); Glucose 338 mg/dL (70-105); Magnesium 1.2 mg/dL (1.6-2.6); Osmolality,Calculated 290 (280-300); Potassium 2.8 mEq/L (3.5-5.1); Sodium 134 mEq/L (136-145); Total Protein 5.5 g/dL (6.4-8.9); eGFR For African Americans > 60 (> 60); eGFR For Non-African Americans > 60 (> 60)
[2019-06-21 02:03] LABS: Troponin I < 0.03 ng/mL (< 0.04)
[2019-06-21] MEDS: Acetaminophen 325 MG TABLET PO PRN (03:23)
[2019-06-21] MEDS: Insulin LISPRO 300 UNITS/3 ML VIAL SQ SCH ×11 (03:24→23:05)
[2019-06-21] MEDS: Piperacillin/Tazobactam 3.375 GM in 0.9 % Sodium Chloride Mini Bag 100 ML IVPB SCH ×3 (03:25→20:00)
[2019-06-21] MEDS ORDERED: Acetaminophen IV 500 MG/50 ML INFUS..BTL IVPB ONE (03:48)
[2019-06-21] MEDS ORDERED: Potassium Chloride 40 MEQ, Lidocaine 1% 2 ML in D5% in Water 500 ML IVPB ONE ×2 (03:49→15:06)
[2019-06-21] MEDS: Ketorolac 30 MG/ML VIAL IVP PRN ×2 (06:04→19:15)
[2019-06-21 07:10] LABS: Hematocrit 36.4 % (35.3-44.9); Hemoglobin 12.2 g/dL (11.5-15.4); Mean Corpuscular HGB Conc 33.5 g/dL (31.6-35.5); Mean Corpuscular Hemoglobin 29.6 pg (28.0-33.3); Mean Corpuscular Volume 88.3 fL (83.0-100.0); Mean Platelet Volume 11.4 fL (9.4-12.4); Monocytes # 0.2 K/mcL (0.0-1.3); Platelet Count 150 K/mcL (140-400); Red Blood Count 4.12 M/mcL (3.82-4.97); Red Cell Distribution Width 13.2 % (11.5-14.5); White Blood Count 8.9 K/mcL (4.3-11.1)
[2019-06-21 07:28] LABS: Alanine Aminotransferase 14 Units/L (7-52); Albumin 3.5 g/dL (3.5-5.7); Albumin/Globulin Ratio 1.6 (1.1-2.2); Alkaline Phosphatase 120 Units/L (34-104); Aspartate Amino Transferase 20 Units/L (13-39); BUN/Creatinine Ratio 14 (6-26); Bilirubin,Total 0.4 mg/dL (0.3-1.0); Blood Urea Nitrogen 14 mg/dL (6-20); Calcium 8.3 mg/dL (8.6-10.3); Carbon Dioxide 19 mEq/L (23-29); Chloride 104 mEq/L (98-107); Globulin 2.2 g/dL (2.4-3.5); Glucose 251 mg/dL (70-105); Osmolality,Calculated 293 (280-300); Potassium 2.6 mEq/L (3.5-5.1); Sodium 137 mEq/L (136-145); Total Protein 5.7 g/dL (6.4-8.9); eGFR For African Americans > 60 (> 60); eGFR For Non-African Americans > 60 (> 60)
[2019-06-21] MEDS ORDERED: Insulin LISPRO 300 UNITS/3 ML VIAL SQ SCH ×2 (07:30)
[2019-06-21 07:32] LABS: Lymphocytes # 1.4 K/mcL (0.6-4.6); Neutrophils # 7.3 K/mcL (1.6-8.9); Platelet Estimate Normal (Normal)
[2019-06-21] MEDS: Gabapentin 400 MG CAPSULE PO SCH ×4 (07:40→21:36)
[2019-06-21] MEDS: Sildenafil Citrate 20 MG TABLET PO SCH ×3 (07:40→21:37)
[2019-06-21] MEDS: Topiramate 100 MG TABLET PO SCH ×2 (07:40→21:36)
[2019-06-21] MEDS: FLUoxetine 20 MG CAPSULE PO SCH (07:40)
[2019-06-21] MEDS: Vancomycin Oral Soln 125 MG/2.5 ML UDC PO SCH ×2 (07:41→12:25)
[2019-06-21] MEDS: Aspirin Enteric Coated 81 MG Tablet PO SCH (07:41)
[2019-06-21] MEDS ORDERED: (Breo Ellipta 100-25 Mcg Inh) IH SCH (09:00)
[2019-06-21 13:52] LABS: Acinetobacter baumannii by PCR Not Detected (Not Detect); Candida albicans by PCR Not Detected (Not Detect); Candida glabrata by PCR Not Detected (Not Detect); Candida krusei by PCR Not Detected (Not Detect); Candida parapsilosis by PCR Not Detected (Not Detect); Candida tropicalis by PCR Not Detected (Not Detect); Enterobacter cloacae Cmplx PCR Not Detected (Not Detect); Enterococcus by PCR Not Detected (Not Detect); Escherichia coli by PCR DETECTED (Not Detect); Klebsiella oxytoca by PCR Not Detected (Not Detect); Klebsiella pneumoniae by PCR Not Detected (Not Detect); Proteus by PCR Not Detected (Not Detect); Pseudomonas aeruginosa by PCR Not Detected (Not Detect); Serratia marcescens by PCR Not Detected (Not Detect); Staphylococcus aureus by PCR Not Detected (Not Detect); Staphylococcus by PCR Not Detected (Not Detect); Streptococcus agalactiae(B)PCR Not Detected (Not Detect); Streptococcus by PCR Not Detected (Not Detect); Streptococcus pneumoniae PCR Not Detected (Not Detect); Streptococcus pyogenes (A) PCR Not Detected (Not Detect); blaKPC Carbapenem-Resist Gene Not Detected (Not Detect)
--- NOTE | 2019-06-21 14:57 | Internal Med Progress Note ---
Hospitalist Progress Note - Encounter Date of Encounter: 06/21/19 Time of Encounter: 14:54 - Subjective Interval History: Pt seen and examined at bedside. Patient reports right flank and right groin pain. She also reports back pain. Patient denies any fever and chills. Patient also reports dysuria and urinary frequency - Exam Vitals: Temp Pulse Resp BP Pulse Ox 98.6 F 91 18 98/58 94 06/21/19 12:25 06/21/19 12:25 06/21/19 12:25 06/21/19 12:25 06/21/19 12:25 Exam: General: Alert and oriented 3 Skin:Normal color, no rash, no lesions. HEENT:EOM, pupils equal, round and reactive. Cardiovascular:Normal S1 & S2, no rubs, murmurs or gallops. No JVD. Pulse reg ular. Lungs:Normal breath sounds, no wheezes or crackles. Abdomen:Soft, non-tender, no rigidity. Mild-moderate right-sided CVA tenderness noted Extremities:No deformity, no edema or tenderness, no joint swelling or clubbing. Neurological:Normal cognition and motor skills. Pulses:Carotid and radial pulses normal +2. - Assessment and Plan (1) Sepsis Current Visit: Yes Status: Acute Assessment and Plan: Patient presented to the emergency room with fever and tachycardia secondary to pyelonephritis and UTI. Frontal lactic acid of 3. Which trended down. Lactic acid this morning was 1.1. Continue aggressive IV hydration and Zosyn. Patient had mild CVA tenderness on exam we will continue to monitor. (2) Pyelonephritis Current Visit: Yes Status: Acute Assessment and Plan: Continue pain control, IV hydration, and Zosyn. Await culture results. (3) Diabetes Current Visit: No Status: Chronic Assessment and Plan: Basal and bolus insulin. (4) PVOD (pulmonary veno-occlusive disease) Current Visit: No Status: Acute Assessment and Plan: She is currently on transplant list at [facility]. (5) COPD (chronic obstructive pulmonary disease) Current Visit: No Status: Chronic Assessment and Plan: We will continue O2 support. Patient is currently not on any exacerbation.. (6) Hypokalemia Current Visit: Yes Status: Acute Assessment and Plan: Impression potassium was low at 2.6. Patient received replacement of 40mEQ X 1. Will give another 40mEQ in the evening. Will monitor (7) Hypomagnesemia Current Visit: Yes Status: Acute Assessment and Plan: Replace wth 4 gm og Mg X 1. Will monitor (8) DVT prophylaxis Current Visit: Yes Status: Acute Assessment and Plan: EPCD - Time Spent with Patient Total time spent is greater than 50% in coordination of care (as documented) at patient's floor/unit and/or counseling patient: Internal Medicine: Result - Labs CBC & Chem 7: 06/21/19 06:17 06/21/19 06:17 Labs: Short CBC 06/20/19 06/21/19 Range/Units 23:55 06:17 WBC 19.5 H 8.9 D (4.3-11.1) K/mcL Hgb 11.4 L 12.2 (11.5-15.4) g/dL Hct 34.2 L 36.4 (35.3-44.9) % Plt Count 211 150 (140-400) K/mcL Neutrophils # 16.0 H 7.3 (1.6-8.9) K/mcL BMP 06/20/19 06/21/19 23:55 06:17 Sodium 134 L 137 Potassium 2.8 L 2.6 L Chloride 104 104 Carbon Dioxide 19 L 19 L BUN 10 14 Creatinine 0.78 0.98 Glucose 338 H 251 H Calcium 8.1 L 8.3 L Cardiac Enzymes 06/20/19 Range/Units 23:55 Troponin I < 0.03 (< 0.04) ng/mL Liver Function 06/20/19 06/21/19 Range/Units 23:55 06:17 Total Bilirubin 0.3 0.4 (0.3-1.0) mg/dL AST 12 L 20 (13-39) Units/L ALT 10 14 (7-52) Units/L Alkaline Phosphatase 62 120 H (34-104) Units/L Albumin 3.3 L 3.5 (3.5-5.7) g/dL - ABG Interpretation ABG results: PT/INR, D-dimer PT 14.8 Seconds (9.4-12.1) H 06/20/19 23:55 - Impressions Impressions Abdomen/Pelvis CT 06/21/19 00:05 IMPRESSION: Mild dilatation of the bilateral urinary tracts without obstructing stone. Right greater than left perinephric and periureteral stranding. Urinary bladder wall thickening. Findings are suspicious for ascending urinary tract infection. Suboptimal evaluation for pyelonephritis on this study given lack of intravenous contrast. If clinically appropriate and if patient's renal function allows, follow-up CT of the abdomen and pelvis with intravenous contrast may be helpful for further evaluation. Hepatomegaly and hepatic steatosis. Trace pericardial and bilateral pleural fluid. The findings were sent to the Radiology Results Communication [facility] at 1:13 am on 06/21/2019to be communicated to a licensed caregiver. D/ / Puneet Slaughter / Puneet Slaughter Interpreting Provider: Puneet Slaughter Consult Discharge Plan - Plan Referrals: Rand Rodgers [Primary Care Provider] - (1) Sepsis Qualifiers: Sepsis type: sepsis due to unspecified organism Sepsis acute organ dysfunction status: without acute organ dysfunction Qualified Code(s): A41.9 - Sepsis, unspecified organism (3) Diabetes Qualifiers: Diabetes mellitus type: type 2 Diabetes mellitus marine oil terminal superintendent insulin use: with marine oil terminal superintendent use Diabetes mellitus complication status: with unspecified complications (5) COPD (chronic obstructive pulmonary disease) Qualifiers: COPD type: unspecified COPD Qualified Code(s): J44.9 - Chronic obstructive pulmonary disease, unspecified
[2019-06-21] MEDS: 0.9 % Sodium Chloride 1,000 ML IVC SCH (16:09)
[2019-06-21] MEDS: Budesonide/Formoterol 80/4.5 1 PUFF INH IH SCH (20:15)
[2019-06-22] MEDS: Acetaminophen 325 MG TABLET PO PRN ×2 (00:20→17:28)
[2019-06-22] MEDS: Insulin LISPRO 300 UNITS/3 ML VIAL SQ SCH ×11 (00:23→22:38)
[2019-06-22 01:49] LABS: Basophils % 0.3 %; Eosinophils # 0.1 K/mcL (0.0-0.6); Hematocrit 28.6 % (35.3-44.9); Immature Granulocytes % 1.8 % (0-4); Lymphocytes # 1.3 K/mcL (0.6-4.6); Lymphocytes % 11.3 %; Mean Corpuscular HGB Conc 33.6 g/dL (31.6-35.5); Mean Corpuscular Hemoglobin 29.4 pg (28.0-33.3); Mean Corpuscular Volume 87.7 fL (83.0-100.0); Mean Platelet Volume 11.6 fL (9.4-12.4); Monocytes # 0.4 K/mcL (0.0-1.3); Monocytes % 3.1 %; Neutrophils # 9.7 K/mcL (1.6-8.9); Platelet Count 138 K/mcL (140-400); Red Blood Count 3.26 M/mcL (3.82-4.97); Red Cell Distribution Width 13.3 % (11.5-14.5); Segmented Neutrophils % 82.5 %; White Blood Count 11.8 K/mcL (4.3-11.1)
[2019-06-22 01:57] LABS: Hemoglobin 9.6 g/dL (11.5-15.4)
[2019-06-22 02:05] LABS: Calcium 7.4 mg/dL (8.6-10.3); Magnesium 1.7 mg/dL (1.6-2.6); Potassium 3.2 mEq/L (3.5-5.1)
[2019-06-22] MEDS: 0.9 % Sodium Chloride 1,000 ML IVC SCH ×4 (02:12→22:42)
[2019-06-22] MEDS ORDERED: D5% in Water 250 ML ONE (05:08)
--- NOTE | 2019-06-22 07:15 | Event Note ---
Date of Encounter: 06/22/19 Time of Encounter: 05:55 I was informed by patients nurse that patients blood pressure was in the 70s, down from the low 100s earlier in the day. One bolus of NS was ordered; subsequent blood pressure was still in the 70s. Unable to transfer to ICU, as no bed is available. Stat CXR ordered due to increased respiratory rate. She was started on dopamine drip. Blood pressure subsequently improved to 102/57. Patient remains febrile at 101.6 in the setting of sepsis. Currently on Zosyn. Satting in the 90s on 4L via [place].
[2019-06-22] MEDS: Piperacillin/Tazobactam 3.375 GM in 0.9 % Sodium Chloride Mini Bag 100 ML IVPB SCH ×3 (08:25→20:26)
[2019-06-22] MEDS: Sildenafil Citrate 20 MG TABLET PO SCH ×3 (09:13→20:31)
[2019-06-22] MEDS: Aspirin Enteric Coated 81 MG Tablet PO SCH (09:13)
[2019-06-22] MEDS: Gabapentin 400 MG CAPSULE PO SCH ×4 (09:13→20:30)
[2019-06-22] MEDS: Topiramate 100 MG TABLET PO SCH ×2 (09:13→20:31)
[2019-06-22] MEDS: FLUoxetine 20 MG CAPSULE PO SCH (09:13)
[2019-06-22] MEDS: Budesonide/Formoterol 80/4.5 1 PUFF INH IH SCH ×2 (10:42→21:40)
[2019-06-22] MEDS ORDERED: 0.9 % Sodium Chloride 1,000 ML IV ONE (14:19)
--- NOTE | 2019-06-22 14:26 | Internal Med Progress Note ---
Hospitalist Progress Note - Encounter Date of Encounter: 06/22/19 Time of Encounter: 14:32 - Subjective Interval History: Patient was seen and examined at bedside today. Patient denies any acute issues and concerns at this time. Patient reports her right lower quadrant right flank and lower back pain has improved significantly since yesterday. Apart from this, she reports that overnight she developed difficulty in breathing. So patient got chest accident. Which was negative for any pneumonia. Patient reports that she would like to go home today. However, I explained to patient that she has a kidney infection and she needs antibiotic and aggressive fluid management in the hospital and advised to stay in the hospital for management. - Exam Vitals: Temp Pulse Resp BP Pulse Ox 98.8 F 77 18 82/58 93 06/22/19 12:10 06/22/19 12:10 06/22/19 12:10 06/22/19 12:10 06/22/19 12:10 Exam: General: A & O 3, In no acute distress HENNT: PERRLA. Head atraumatic and makes supple CVS S1 and S2 regular, no murmur RS: Clear to air entry bilaterally, no wheeze, no crackles Abdomen: Soft and nontender. Bowel sounds normal 4 Extremities: No cyanosis, clubbing, and edema Neurology: Cranial II-XII normal. Motor strength 5/5 bilaterally. Sensation intact - Assessment and Plan (1) Sepsis Current Visit: Yes Status: Acute Assessment and Plan: She was admitted night before yesterday due to sepsis likely due to pyelonephritis. Patient's initial lactic it was high which was trended down. Patient is currently on Zosyn. Patient's blood pressure is around 80s over 60s. We will continue to do aggressively fluid management. Continue to monitor. Overnight patient developed difficulty in breathing. Chest x-ray was done which was negative. Patient is currently on O2 support which is due to pulmonary venoocclusive disease. Patient is at home on 4 L oxygen. Patient here in the hospital requiring the same amount of oxygen. We will continue to monitor. (2) Pyelonephritis Current Visit: Yes Status: Acute Assessment and Plan: Management visible. (3) Diabetes Current Visit: No Status: Chronic Assessment and Plan: Resume diabetic diet, sliding scale insulin plus basal dose once blood glucose stable.. (4) PVOD (pulmonary veno-occlusive disease) Current Visit: No Status: Acute Assessment and Plan: She is currently on transplant list at [facility] for PVOD. (5) COPD (chronic obstructive pulmonary disease) Current Visit: No Status: Chronic Assessment and Plan: History of COPD currently on 4 L of oxygen at home. No evidence of any acute exacerbation at this time. Continue O2 support .Resume any home inhalers.Currently on transplant list due to PVOD. (6) Hypokalemia Current Visit: Yes Status: Acute Assessment and Plan: Hypokalemia of 2.8. K Dur 80 given yeater. K dur 40 today. Replete as needed.Will monitor. (7) Morbid obesity Current Visit: Yes Status: Acute Assessment and Plan: In as a BMI of 40. Advised on diet modification and exercise. (8) DVT prophylaxis Current Visit: Yes Status: Resolved Assessment and Plan: EPCD - Time Spent with Patient Total time spent is greater than 50% in coordination of care (as documented) at patient's floor/unit and/or counseling patient: 25 - 35 minutes Plan of Care Discussed with: patient Internal Medicine: Result - Labs CBC & Chem 7: 06/22/19 01:16 06/22/19 01:16 Labs: Short CBC 06/22/19 Range/Units 01:16 WBC 11.8 H (4.3-11.1) K/mcL Hgb 9.6 L D (11.5-15.4) g/dL Hct 28.6 L (35.3-44.9) % Plt Count 138 L (140-400) K/mcL Neutrophils # 9.7 H (1.6-8.9) K/mcL BMP 06/22/19 01:16 Sodium 130 L Potassium 3.2 L Chloride 105 Carbon Dioxide 17 L BUN 22 H Creatinine 1.26 H Glucose 225 H Calcium 7.4 L - ABG Interpretation ABG results: PT/INR, D-dimer PT 14.8 Seconds (9.4-12.1) H 06/20/19 23:55 - Impressions Impressions Chest X-Ray 06/22/19 05:02 IMPRESSION: Borderline cardiomegaly with minor airspace disease at the lung bases. Clinical correlation and follow-up chest radiographs recommended. D/ / Luís Brock MD / Luís Brock MD Interpreting Provider: Luís Brock MD Consult Discharge Plan - Plan Referrals: Rand Rodgers [Primary Care Provider] - (1) Sepsis Qualifiers: Sepsis type: sepsis due to unspecified organism Sepsis acute organ dysfunction status: without acute organ dysfunction Qualified Code(s): A41.9 - Sepsis, unspecified organism (3) Diabetes Qualifiers: Diabetes mellitus type: type 2 Diabetes mellitus termite control representative insulin use: with chcf use Diabetes mellitus complication status: with hyperglycemia Qualified Code(s): E11.65 - Type 2 diabetes mellitus with hyperglycemia; Z79.4 - termite treater (current) use of insulin (5) COPD (chronic obstructive pulmonary disease) Qualifiers: COPD type: unspecified COPD Qualified Code(s): J44.9 - Chronic obstructive pulmonary disease, unspecified
[2019-06-22] MEDS: Insulin DETEMIR 100 UNIT/ML X5UNITS SQ SCH (20:36)
[2019-06-23] MEDS: Insulin LISPRO 300 UNITS/3 ML VIAL SQ SCH ×5 (00:21→07:42)
[2019-06-23] MEDS: Piperacillin/Tazobactam 3.375 GM in 0.9 % Sodium Chloride Mini Bag 100 ML IVPB SCH (04:06)
[2019-06-23] MEDS: Acetaminophen 325 MG TABLET PO PRN (04:06)
[2019-06-23 05:15] LABS: Hematocrit 27.5 % (35.3-44.9); Hemoglobin 9.2 g/dL (11.5-15.4); Mean Corpuscular HGB Conc 33.5 g/dL (31.6-35.5); Mean Corpuscular Hemoglobin 28.9 pg (28.0-33.3); Mean Corpuscular Volume 86.5 fL (83.0-100.0); Mean Platelet Volume 11.5 fL (9.4-12.4); Platelet Count 155 K/mcL (140-400); Red Blood Count 3.18 M/mcL (3.82-4.97); Red Cell Distribution Width 13.8 % (11.5-14.5)
[2019-06-23 05:34] LABS: Alanine Aminotransferase 24 Units/L (7-52); Albumin/Globulin Ratio 1.2 (1.1-2.2); Alkaline Phosphatase 107 Units/L (34-104); Aspartate Amino Transferase 21 Units/L (13-39); BUN/Creatinine Ratio 15 (6-26); Bilirubin,Total 0.5 mg/dL (0.3-1.0); Blood Urea Nitrogen 13 mg/dL (6-20); Calcium 7.9 mg/dL (8.6-10.3); Carbon Dioxide 18 mEq/L (23-29); Chloride 109 mEq/L (98-107); Globulin 2.6 g/dL (2.4-3.5); Glucose 193 mg/dL (70-105); Osmolality,Calculated 287 (280-300); Potassium 3.4 mEq/L (3.5-5.1); Sodium 136 mEq/L (136-145); Total Protein 5.6 g/dL (6.4-8.9); eGFR For African Americans > 60 (> 60); eGFR For Non-African Americans > 60 (> 60)
[2019-06-23 05:41] LABS: Lymphocytes # 2.2 K/mcL (0.6-4.6); Monocytes # 0.2 K/mcL (0.0-1.3); Neutrophils # 9.6 K/mcL (1.6-8.9)
[2019-06-23 05:42] LABS: Platelet Estimate Normal (Normal)
[2019-06-23] MEDS: 0.9 % Sodium Chloride 1,000 ML IVC SCH (06:12)
[2019-06-23] MEDS: FLUoxetine 20 MG CAPSULE PO SCH (07:41)
[2019-06-23] MEDS: Aspirin Enteric Coated 81 MG Tablet PO SCH (07:41)
[2019-06-23] MEDS: Topiramate 100 MG TABLET PO SCH (07:42)
[2019-06-23] MEDS: Gabapentin 400 MG CAPSULE PO SCH (07:42)
[2019-06-23] MEDS: Sildenafil Citrate 20 MG TABLET PO SCH (07:42)
[2019-06-23] MEDS: Budesonide/Formoterol 80/4.5 1 PUFF INH IH SCH (10:21)
[2019-06-23 11:30] VITALS: BP 97/50
[2019-06-23] MEDS ORDERED: Insulin LISPRO 300 UNITS/3 ML VIAL SQ SCH ×2 (11:30→21:00)
--- NOTE | 2019-06-23 12:36 | Discharge Summary ---
Date of Encounter: 06/23/19 Time of Encounter: 12:33 - Discharge Diagnosis (1) Pyelonephritis Priority: Primary Status: Acute Assessment and Plan: Patient currently states that her flank pain has resolved. Denies chills, nausea an vomiting. E. coli grown on blood culture and sensitive to levaquin Wll dc on PO Levaquin (2) Diabetes Priority: Secondary Status: Chronic Assessment and Plan: Resume diabetic diet, sliding scale insulin plus basal dose once blood glucose stable.. Qualifiers: Diabetes mellitus type: type 2 Diabetes mellitus usp insulin use: with usp use Diabetes mellitus complication status: with hyperglycemia Qualified Code(s): E11.65 - Type 2 diabetes mellitus with hyperglycemia; Z79.4 - snf (current) use of insulin (3) PVOD (pulmonary veno-occlusive disease) Priority: Secondary Status: Acute Assessment and Plan: She is currently on transplant list at [facility] for PVOD. (4) COPD (chronic obstructive pulmonary disease) Priority: Secondary Status: Chronic Assessment and Plan: History of COPD currently on 4 L of oxygen at home. No evidence of any acute exacerbation at this time. Continue O2 support .Resume any home inhalers.Currently on transplant list due to PVOD. Qualifiers: COPD type: unspecified COPD Qualified Code(s): J44.9 - Chronic obstructive pulmonary disease, unspecified (5) DVT prophylaxis Priority: Secondary Status: Resolved Assessment and Plan: EPCD (6) Sepsis Priority: Secondary Status: Acute Assessment and Plan: Resolved. WBC 12.0. Normal vitals Continue antibiotics Qualifiers: Sepsis type: sepsis due to unspecified organism Sepsis acute organ dysfunction status: without acute organ dysfunction Qualified Code(s): A41.9 - Sepsis, unspecified organism (7) Hypokalemia Priority: Secondary Status: Acute Assessment and Plan: Resolved. (8) Morbid obesity Priority: Secondary Status: Acute Hospital course: Ms. Pemberton is a 38 year old female with a PMHx of Type 2 Dm, COPD and ulmonary Veno occlusive disease who presented with sepsis 2/2 pyelonephritis. She has improved on IV antibiotics and will be dischaged on oral antibiotics to follow up as outpatient. Discharge discussed with: patient - Time Spent with Patient Total time spent providing and/or coordinating discharge services: Time spent: Greater than 30 minutes (40) - Discharge Medications Prescriptions: New levoFLOXacin [Levaquin] 750 mg PO DAILY 10 Days #10 tablet Continued Albuterol Sulfate [Proventil Inhaler] 2 puff IH Q4HR PRN PRN Reason: Shortness Of Breath Aspirin [Lo-Dose Aspirin EC] 81 mg PO DAILY Cetirizine HCl [Zyrtec] 10 mg PO DAILY Dicyclomine [Bentyl] 20 mg PO BID Famotidine [Heartburn Prevention] 20 mg PO HS PRN PRN Reason: Heartburn Fenofibrate,Micronized [Fenofibrate] 200 mg PO DAILY #0 FLUoxetine HCl [Prozac] 60 mg PO DAILY Gabapentin [Neurontin] 800 mg PO QID Insulin Regular U-500 [HumuLIN R U-500] 32 unit SQ TID Sildenafil Citrate [Revatio] 10 mg PO TID Simvastatin [Zocor] 40 mg PO HS Tizanidine HCl 4 mg PO BID PRN PRN Reason: Muscle Spasm Topiramate [Topamax] 150 mg PO BID Omeprazole [PriLOSEC] 20 mg PO DAILY hydrOXYzine HCl [Hydroxyzine HCl] 50 mg PO QPM Buspirone HCl [Buspar] 15 mg PO BID Fluticasone/Salmeterol [Airduo Respiclick 113-14 Mcg] 1 puff IH BID lamoTRIgine [Lamictal] 100 mg PO DAILY Losartan Potassium [Cozaar] 50 mg PO DAILY Potassium Chloride [Klor-Con 10] 20 meq PO DAILY Quetiapine Fumarate [Seroquel] 300 mg PO HS No Action Acetaminophen [Tylenol] 650 mg PO Q6H PRN tablet PRN Reason: Pain Home Medications: Albuterol Sulfate [Proventil Inhaler] 2 puff IH Q4HR PRN 04/02/18 [History] Aspirin [Lo-Dose Aspirin EC] 81 mg PO DAILY 04/02/18 [History] Cetirizine HCl [Zyrtec] 10 mg PO DAILY 04/02/18 [History] Dicyclomine [Bentyl] 20 mg PO BID 04/02/18 [History] FLUoxetine HCl [Prozac] 60 mg PO DAILY 04/02/18 [History] Famotidine [Heartburn Prevention] 20 mg PO HS PRN 04/02/18 [History] Fenofibrate,Micronized [Fenofibrate] 200 mg PO DAILY #0 04/02/18 [History] Gabapentin [Neurontin] 800 mg PO QID 04/02/18 [History] Insulin Regular U-500 [HumuLIN R U-500] 32 unit SQ TID 04/02/18 [History] Sildenafil Citrate [Revatio] 10 mg PO TID 04/02/18 [History] Simvastatin [Zocor] 40 mg PO HS 04/02/18 [History] Tizanidine HCl 4 mg PO BID PRN 04/02/18 [History] Topiramate [Topamax] 150 mg PO BID 04/02/18 [History] Omeprazole [PriLOSEC] 20 mg PO DAILY 10/27/18 [History] hydrOXYzine HCl [Hydroxyzine HCl] 50 mg PO QPM 10/27/18 [History] Acetaminophen [Tylenol] 650 mg PO Q6H PRN tablet 10/30/18 [Rx] Buspirone HCl [Buspar] 15 mg PO BID 06/21/19 [History] Fluticasone/Salmeterol [Airduo Respiclick 113-14 Mcg] 1 puff IH BID 06/21/19 [History] Losartan Potassium [Cozaar] 50 mg PO DAILY 06/21/19 [History] Potassium Chloride [Klor-Con 10] 20 meq PO DAILY 06/21/19 [History] Quetiapine Fumarate [Seroquel] 300 mg PO HS 06/21/19 [History] lamoTRIgine [Lamictal] 100 mg PO DAILY 06/21/19 [History] levoFLOXacin [Levaquin] 750 mg PO DAILY 10 Days #10 tablet 06/23/19 [Rx] Allergies/Adverse Reactions: Allergy/AdvReac Type Severity Reaction Status Date / Time Erythromycin Base Allergy Intermediate HIVES,VOMIT Verified 06/21/19 11:04 ING Sulfa (Sulfonamide Allergy Mild HIVES,VOMIT Verified 06/21/19 11:04 Antibiotics) ING Date of admission: 06/21/19 09:36 Primary care physician: Rand Rodgers Consults: 06/22/19 06:28 Consult to Cardiac Rehabilitation-Phase1 [CONS] Routine Comment: Reason for Consult: heart failure Call Completed: Yes Consult to Nurse Navigator [CONS] Routine Comment: - Constitutional Vitals: Temp Pulse Resp BP Pulse Ox 36.8 C 89 18 97/50 92 06/23/19 11:25 06/23/19 11:25 06/23/19 11:25 06/23/19 11:25 06/23/19 11:25 General appearance: Present: A&O X 3 Exam: General: A & O 3, In no acute distress HENNT: PERRLA. Head atraumatic and makes supple CVS S1 and S2 regular, no murmur RS: Clear to air entry bilaterally, no wheeze, no crackles Abdomen: Soft and nontender. Bowel sounds normal Extremities: No cyanosis, clubbing, and edema Neurology: Cranial II-XII normal. Motor strength 5/5 bilaterally. Sensation intact - Patient Status Disposition: Home, Self-Care Condition: Fair Functional capacity at discharge: uses cane/walker Overall status at discharge: patient is progressing back to baseline - Discharge Instructions Follow Up With: Rand Rodgers [Primary Care Provider] - - Diet and Activity Activity: increase activity as tolerated Diet: advance to your usual diet, diabetic diet
[2019-06-24] MEDS ORDERED: levoFLOXacin 750 MG TABLET PO SCH (09:00)
== END 2019-06-23 14:30 | disposition home or self-care (01) | DRG 720 ==
LOC: 2NNU → SUATTDRO 21:38
PROVIDERS: ADMIT Internal Medicine; ATTEND Internal Medicine

== ENCOUNTER 2019-06-29 18:03 | Observation (INO) ==
[2019-06-29 19:37] LABS: Bilirubin,Urine Negative (Negative); Blood,Urine Moderate (Negative); Clarity,Urine Turbid (Clear); Color,Urine Yellow (Yellow); Glucose,Urine (UA) 250 mg/dL (Normal); Ketones,Urine Negative (Negative); Leukocyte Esterase,Urine Large (Negative); Nitrite,Urine Negative (Negative); PH,Urine 7.5 pH Units (5.0-8.0); Protein,Urine 30 mg/dL (Neg-Trace); Specific Gravity,Urine 1.015 (1.010-1.025); Urobilinogen,Urine Normal (Normal)
[2019-06-29 19:38] LABS: Bacteria,Urine Few per hpf (None-Few); Hyaline Casts,Urine None Seen per lpf (None-Few); Squamous Epithelial Cell,Urine Many per lpf (None-Few); WBC,Urine TNTC per hpf (0-3)
[2019-06-29] MEDS ORDERED: Ondansetron 4 MG/2 ML VIAL IVP ONE (20:25)
[2019-06-29] MEDS ORDERED: Morphine Sulfate 2 MG/ML SYRINGE IVP ONE (20:25)
[2019-06-29 20:28] LABS: Basophils # 0.1 K/mcL (0.0-0.2); Basophils % 0.3 %; Eosinophils # 0.2 K/mcL (0.0-0.6); Eosinophils % 1.1 %; Hematocrit 31.2 % (35.3-44.9); Hemoglobin 10.4 g/dL (11.5-15.4); Immature Granulocytes % 2.3 % (0-4); Lymphocytes # 3.8 K/mcL (0.6-4.6); Mean Corpuscular HGB Conc 33.3 g/dL (31.6-35.5); Mean Corpuscular Hemoglobin 28.7 pg (28.0-33.3); Mean Platelet Volume 10.1 fL (9.4-12.4); Monocytes # 0.7 K/mcL (0.0-1.3); Monocytes % 4.3 %; Neutrophils # 10.3 K/mcL (1.6-8.9); Platelet Count 660 K/mcL (140-400); Red Blood Count 3.63 M/mcL (3.82-4.97); Red Cell Distribution Width 14.3 % (11.5-14.5); White Blood Count 15.3 K/mcL (4.3-11.1)
[2019-06-29 20:48] LABS: Alanine Aminotransferase 14 Units/L (7-52); Albumin 3.3 g/dL (3.5-5.7); Albumin/Globulin Ratio 0.9 (1.1-2.2); Alkaline Phosphatase 97 Units/L (34-104); Aspartate Amino Transferase 10 Units/L (13-39); BUN/Creatinine Ratio 13 (6-26); Bilirubin,Direct 0.1 mg/dL (0.0-0.2); Bilirubin,Indirect 0.2 mg/dL (0.0-1.2); Bilirubin,Total 0.3 mg/dL (0.3-1.0); Blood Urea Nitrogen 8 mg/dL (6-20); Calcium 9.5 mg/dL (8.6-10.3); Carbon Dioxide 23 mEq/L (23-29); Chloride 101 mEq/L (98-107); Globulin 3.7 g/dL (2.4-3.5); Glucose 307 mg/dL (70-105); Lipase 19 Units/L (11-82); Osmolality,Calculated 286 (280-300); Potassium 3.7 mEq/L (3.5-5.1); Sodium 133 mEq/L (136-145); eGFR For African Americans > 60 (> 60); eGFR For Non-African Americans > 60 (> 60)
[2019-06-29 20:52] LABS: Platelet Estimate Increased (Normal)
[2019-06-29] MEDS ORDERED: cefTRIAXone 1,000 MG in Water for inj. (sterile) 10 ML IVP ONE (20:55)
[2019-06-29] MEDS ORDERED: Ondansetron 4 MG/2 ML VIAL IVP PRN (22:14)
[2019-06-29] MEDS ORDERED: Naloxone 0.4 MG/ML INJ IVP PRN ×2 (22:14→23:45)
[2019-06-29] MEDS ORDERED: tiZANidine 4 MG TABLET PO PRN (22:16)
[2019-06-29] MEDS ORDERED: D5% in Water 1,000 ML IVC PRN (22:20)
[2019-06-29] MEDS ORDERED: Dextrose Gel 15 GM/37.5 ML TUBE PO PRN ×2 (22:20)
[2019-06-29] MEDS ORDERED: *HR* Dextrose 50 % in Water (Syg) 50 ML SYRINGE IVP PRN (22:20)
[2019-06-29 23:13] LABS: Hematocrit 32.9 % (35.3-44.9); Hemoglobin 10.7 g/dL (11.5-15.4)
[2019-06-29] MEDS: 0.9 % Sodium Chloride 1,000 ML IVC SCH (23:34)
[2019-06-30 05:10] LABS: Basophils # 0.1 K/mcL (0.0-0.2); Basophils % 0.4 %; Eosinophils # 0.2 K/mcL (0.0-0.6); Eosinophils % 1.5 %; Hematocrit 27.9 % (35.3-44.9); Hemoglobin 8.9 g/dL (11.5-15.4); Lymphocytes # 3.5 K/mcL (0.6-4.6); Lymphocytes % 29.5 %; Mean Corpuscular HGB Conc 31.9 g/dL (31.6-35.5); Mean Corpuscular Volume 90.9 fL (83.0-100.0); Monocytes # 0.6 K/mcL (0.0-1.3); Monocytes % 4.7 %; Neutrophils # 7.3 K/mcL (1.6-8.9); Platelet Count 547 K/mcL (140-400); Red Blood Count 3.07 M/mcL (3.82-4.97); Red Cell Distribution Width 14.4 % (11.5-14.5); Segmented Neutrophils % 61.9 %; White Blood Count 11.7 K/mcL (4.3-11.1)
[2019-06-30 05:29] LABS: BUN/Creatinine Ratio 15 (6-26); Blood Urea Nitrogen 7 mg/dL (6-20); Calcium 7.1 mg/dL (8.6-10.3); Carbon Dioxide 18 mEq/L (23-29); Chloride 111 mEq/L (98-107); Glucose 271 mg/dL (70-105); Osmolality,Calculated 290 (280-300); Potassium 3.2 mEq/L (3.5-5.1); Sodium 136 mEq/L (136-145); eGFR For African Americans > 60 (> 60); eGFR For Non-African Americans > 60 (> 60)
[2019-06-30] MEDS ORDERED: Insulin LISPRO 300 UNITS/3 ML VIAL SQ SCH ×3 (06:00→21:00)
[2019-06-30] MEDS: 0.9 % Sodium Chloride 1,000 ML IVC SCH (06:10)
[2019-06-30] MEDS: Sildenafil Citrate 20 MG TABLET PO SCH ×3 (08:00→22:27)
[2019-06-30] MEDS: Topiramate 100 MG TABLET PO SCH ×2 (08:28→22:28)
[2019-06-30] MEDS: Gabapentin 400 MG CAPSULE PO SCH ×4 (08:29→22:27)
[2019-06-30] MEDS: lamoTRIgine 100 MG TABLET PO SCH (08:29)
[2019-06-30] MEDS: Fenofibrate 54 MG TABLET PO SCH (08:29)
[2019-06-30] MEDS: FLUoxetine 20 MG CAPSULE PO SCH (08:29)
[2019-06-30] MEDS: cefTRIAXone 1,000 MG in Water for inj. (sterile) 10 ML IVP SCH (08:30)
[2019-06-30] MEDS: Budesonide/Formoterol 80/4.5 1 PUFF INH IH SCH ×2 (10:13→21:46)
[2019-06-30 10:50] LABS: Hematocrit 31.8 % (35.3-44.9); Hemoglobin 10.1 g/dL (11.5-15.4)
[2019-06-30] MEDS ORDERED: 0.9 % Sodium Chloride 1,000 ML IVC ONE (12:30)
[2019-06-30] MEDS: Insulin DETEMIR 100 UNIT/ML X5UNITS SQ SCH (13:24)
[2019-06-30] MEDS: Ringers Solution, Lactated 1,000 ML IVC SCH ×2 (15:02→22:31)
[2019-06-30 15:52] LABS: Hematocrit 30.9 % (35.3-44.9); Hemoglobin 10.1 g/dL (11.5-15.4)
[2019-06-30] MEDS: Insulin LISPRO 300 UNITS/3 ML VIAL SQ SCH (17:53)
[2019-06-30] MEDS ORDERED: hydrOXYzine pamoate 25 MG CAPSULE PO SCH (18:00)
[2019-06-30] MEDS ORDERED: QUEtiapine Fumarate 300 MG TABLET PO SCH (21:00)
[2019-06-30 21:49] LABS: Hematocrit 30.7 % (35.3-44.9); Hemoglobin 9.8 g/dL (11.5-15.4)
[2019-07-01 04:58] LABS: Basophils % 0.3 %; Eosinophils # 0.1 K/mcL (0.0-0.6); Eosinophils % 0.9 %; Hematocrit 29.8 % (35.3-44.9); Hemoglobin 9.4 g/dL (11.5-15.4); Immature Granulocytes % 1.3 % (0-4); Lymphocytes # 4.2 K/mcL (0.6-4.6); Lymphocytes % 32.2 %; Mean Corpuscular HGB Conc 31.5 g/dL (31.6-35.5); Mean Corpuscular Hemoglobin 28.7 pg (28.0-33.3); Mean Corpuscular Volume 90.9 fL (83.0-100.0); Monocytes # 0.6 K/mcL (0.0-1.3); Monocytes % 4.3 %; Neutrophils # 7.9 K/mcL (1.6-8.9); Platelet Count 638 K/mcL (140-400); Red Blood Count 3.28 M/mcL (3.82-4.97); White Blood Count 12.9 K/mcL (4.3-11.1)
[2019-07-01 05:22] LABS: % Iron Saturation 16 % (15-50); BUN/Creatinine Ratio 10 (6-26); Blood Urea Nitrogen 6 mg/dL (6-20); Calcium 8.8 mg/dL (8.6-10.3); Carbon Dioxide 21 mEq/L (23-29); Chloride 107 mEq/L (98-107); Glucose 303 mg/dL (70-105); Iron 41 mcg/dL (50-170); Magnesium 1.7 mg/dL (1.6-2.6); Osmolality,Calculated 295 (280-300); Potassium 3.8 mEq/L (3.5-5.1); Sodium 138 mEq/L (136-145); Transferrin 182 mg/dL (203-362); eGFR For African Americans > 60 (> 60); eGFR For Non-African Americans > 60 (> 60)
[2019-07-01 05:35] LABS: Ferritin 204 ng/mL (10-120)
[2019-07-01 05:40] LABS: Folate 5.9 ng/mL (3.0-16.0)
[2019-07-01] MEDS: Insulin LISPRO 300 UNITS/3 ML VIAL SQ SCH ×3 (07:53→12:11)
[2019-07-01] MEDS: FLUoxetine 20 MG CAPSULE PO SCH (07:54)
[2019-07-01] MEDS: lamoTRIgine 100 MG TABLET PO SCH (07:54)
[2019-07-01] MEDS: Gabapentin 400 MG CAPSULE PO SCH ×2 (07:54→12:12)
[2019-07-01] MEDS: Topiramate 100 MG TABLET PO SCH (07:55)
[2019-07-01] MEDS: cefTRIAXone 1,000 MG in Water for inj. (sterile) 10 ML IVP SCH (07:55)
[2019-07-01] MEDS: Fenofibrate 54 MG TABLET PO SCH (07:55)
[2019-07-01] MEDS ORDERED: Ergocalciferol (VIT D2) 50,000 UNIT (1.25MG) CAP PO SCH (08:00)
[2019-07-01] MEDS: Budesonide/Formoterol 80/4.5 1 PUFF INH IH SCH (08:07)
[2019-07-01] MEDS: Sildenafil Citrate 20 MG TABLET PO SCH (08:10)
[2019-07-01] MEDS: Insulin DETEMIR 100 UNIT/ML X5UNITS SQ SCH (08:27)
[2019-07-01 14:33] VITALS: BP 118/76
== END 2019-07-01 16:09 | disposition home or self-care (01) ==
LOC: EMEROOARM 18:03 → 3ANU 18:03 → SUATTDRO 21:36 → 3ANU 22:48
PROVIDERS: ADMIT Internal Medicine Nephrology; ATTEND Pharmacist